=== PATIENT | female | born 1970 | race Caucasian/White ===

== ENCOUNTER 2018-12-27 10:49 | Emergency (ER) | payer OTHER ==
[~2018-12-27] VITALS: Ht 157.5 cm; Wt 79.8 kg
[2018-12-27 10:51] VITALS: Ht 157.5 cm; Wt 79.8 kg
[2018-12-27] MEDS ORDERED: DIPHENHYDRAMINE 50 MG INJ IV STA (11:16)
[2018-12-27] MEDS ORDERED: PROCHLORPERAZINE 10 MG INJ IV STA (11:16)
[2018-12-27] MEDS ORDERED: SOD CHLORIDE 0.9% 1,000 ML IV STA (11:16)
[2018-12-27] MEDS ORDERED: ACETAMINOPHEN 500 MG TAB PO STA (11:16)
[2018-12-27] MEDS ORDERED: KETOROLAC 15 MG INJ IV STA (13:28)
--- NOTE | 2018-12-27 13:33 | ERD ---
ER Documentation Chief Complaint Chief Complaint headache x 3 days getting worse HPI This is a 48-year-old female with no significant past medical history who is presenting for a headache. The patient endorses 3 to 4 days of progressive worsening pulsating or throbbing aching moderate frontal headache with phonophobia but no photophobia and no nausea. The patient reports that at first she felt a little lightheaded with a dull aching sensation to the head, but it is recurrent progressed to become more significant. She is attempted Tylenol at home without relief. She has had headaches in the past, but typically they go away with Tylenol. The patient does not endorse any stress or anxiousness. She does not endorse any tension to her neck. She does not endorse any neck stiffness or pain. She is able to move her neck in all directions without issue. She does not have a personal or family history of cerebral aneurysm. The patient actually does also endorse dysuria with urgency and frequency. She does not have any hematuria. The patient denies feeling sick recently. The patient denies fever or chills. The patient has had no headache or vision changes. The patient does not endorse neck or back pain. The patient denies lightheadedness or dizziness. The patient has had no chest pain or trouble breathing. The patient denies nausea or vomiting. The patient denies abdominal pain. The patient denies changes to bowel movements. The patient has had no focal deficits. The patient has had no weakness or numbness or tingling to the face or extremities. ROS All systems reviewed and are negative except as per history of present illness. Medications Home Meds No Active Prescriptions or Reported Meds Allergies Allergies: Coded Allergies: No Known Allergy (Unverified , 12/27/18) PMhx/Soc Medical and Surgical Hx: pt denies Medical Hx History of Surgery: Yes (hysterectomy) Anesthesia Reaction: No Hx Alcohol Use: Yes (jona [id number]) Hx Substance Use: No Hx Tobacco Use: No Smoking Status: Unknown if ever smoked FmHx Family History: No diabetes Physical Exam Vitals Vital Signs Date Temp Pulse Resp B/P (MAP) Pulse Ox O2 O2 Flow FiO2 Time Delivery Rate 12/27/18 37.2 11:43 12/27/18 99.0 109 26 112/72 100 Room Air 11:28 (85) 12/27/18 99.0 101 26 114/56 98 10:51 (75) Physical Exam Const: No apparent distress, well-developed, well-nourished Head: Normocephalic, Atraumatic Eyes: Normal Conjunctiva. Extraocular movements intact. Pupils equal, round and reactive to light ENT: Normal External Ears, Nose and Mouth. Neck: Full range of motion. No meningismus. Resp: Clear to auscultation bilaterally, No wheezes, rales or rhonchi Cardio: Regular rate and rhythm. No murmurs, rubs or gallops Abd: Soft, non tender, non distended. Normal bowel sounds Skin: No petechiae or rashes Back: No midline tenderness. No CVA tenderness Ext: No cyanosis, or edema Neur: Awake and alert, oriented 4. Cranial nerves intact. No facial droop. Normal strength, sensation and coordination. Psych: Normal Mood and Affect Result Diagram: 12/27/18 1145 12/27/18 1145 Results 24 hrs Laboratory Tests Test 12/27/18 11:45 12/27/18 12:01 White Blood Count 11.3 10^3/ul Red Blood Count 4.09 10^6/ul Hemoglobin 12.7 g/dl Hematocrit 37.5 % Mean Corpuscular Volume 91.7 fl Mean Corpuscular Hemoglobin 31.1 pg Mean Corpuscular Hemoglobin Concent 33.9 g/dl Red Cell Distribution Width 12.3 % Platelet Count 284 10^3/UL Mean Platelet Volume 9.5 fl Immature Granulocytes % 0.600 % Neutrophils % 83.7 % Lymphocytes % 9.2 % Monocytes % 5.7 % Eosinophils % 0.3 % Basophils % 0.5 % Nucleated Red Blood Cells % 0.0 /100WBC Immature Granulocytes # 0.070 10^3/ul Neutrophils # 9.4 10^3/ul Lymphocytes # 1.0 10^3/ul Monocytes # 0.6 10^3/ul Eosinophils # 0.0 10^3/ul Basophils # 0.1 10^3/ul Nucleated Red Blood Cells # 0.0 10^3/ul Prothrombin Time 13.1 Sec Prothrombin Time Ratio 1.0 INR International Normalized Ratio 0.98 Urine Color GEOFFREY Urine Clarity CLOUDY Urine pH 5.0 Urine Specific Mcclellan 1.025 Urine Ketones NEGATIVE mg/dL Urine Nitrite NEGATIVE mg/dL Urine Bilirubin NEGATIVE mg/dL Urine Urobilinogen NEGATIVE mg/dL Urine Leukocyte Esterase 1+ Zachary/ul Urine Microscopic RBC 18 /HPF Urine Microscopic WBC 87 /HPF Urine Squamous Epithelial Cells FEW /HPF Urine Bacteria FEW /HPF Urine Mucus MODERATE /HPF Urine Hemoglobin 3+ mg/dL Urine Glucose NEGATIVE mg/dL Urine Total Protein 1+ mg/dl Sodium Level 140 mmol/L Potassium Level 3.5 mmol/L Chloride Level 105 mmol/L Carbon Dioxide Level 28 mmol/L Anion Gap 7 Blood Urea Nitrogen 9 mg/dl Creatinine 0.80 mg/dl Est Glomerular Filtrat Rate mL/min > 60 mL/min Glucose Level 104 mg/dl Calcium Level 9.4 mg/dl POC Beta HCG, Qualitative NEGATIVE Current Medications Medications Dose Sig/Leopoldo Start Time Status Last (Trade) Ordered Route PRN Stop Time Admin Dose Reason Admin Sodium 1,000 ml @ Q1H STAT 12/27/18 DC 12/27/18 Chloride 1,000 mls/hr IV 11:16 11:47 12/27/18 12:15 1,000 mg ONCE STAT 12/27/18 DC 12/27/18 Acetaminophen PO 11:16 11:43 (Tylenol 12/27/18 11:18 Tab) 10 mg ONCE STAT 12/27/18 DC 12/27/18 Prochlorperaz IV 11:16 11:43 ine 12/27/18 11:18 (Compazine Inj) 25 mg ONCE STAT 12/27/18 DC 12/27/18 Diphenhydrami IV 11:16 11:43 ne HCl 12/27/18 11:18 (Benadryl) Procedures/MDM MDM The patient's presentation warrants further investigation. Previous medical records, if available, were reviewed. LABS The patient's laboratory testing was obtained and reviewed. No emergent treatment was required unless described below. CBC: Mild leukocytosis, likely reactive, low clinical suspicion for a systemic infection. No E/o anemia or thrombocytopenia Chemistry: No E/o severe acidosis or alkalosis or renal failure or diabetic ketoacidosis PT/INR: No E/o significant coagulopathy Urine: E/o acute infection with hematuria IMAGING Imaging and Radiology interpretation reviewed. CT head FINDINGS: There is no evidence of acute intracranial hemorrhage or acute territorial infarct. No mass or mass effect is seen on this noncontrast study. The ventricles and cisterns are normal in size and configuration. The haque- white matter differentiation is within normal limits. The visualized paranasal sinuses are normally aerated. The bony calvarium is unremarkable IMPRESSION: Unremarkable unenhanced CT of the brain Electronically viewed and signed by Archie Anne MD, MD on 12/27/2018 12:59 TREATMENT/DISPOSITION The patient presents with a headache. The patient does have a urinary tract infection, which could relate to her headache today. The patient will require outpatient treatment. Differential diagnosis includes migraine, tension headache, cluster headache. The patient has no focal deficits. The neurologic exam is reassuring. I have decreased suspicion for cerebral ischemia. There was no trauma or injury. There is no personal or family history of cerebral aneurysm. This is not the worst headache of the patient's life. It was not acutely severe. It is been progressive in nature. I have decreased suspicion for SAH or other ICH. I have low suspicion for temporal arteritis, cavernous venous thrombosis, subdural hematoma, epidural hematoma, meningitis. The patient was treated with IV fluids, Tylenol, Toradol, Compazine and Benadryl with improvement of her symptoms. DISCHARGE Upon reevaluation of the patient, symptoms have improved. No emergent diagnoses were identified. At this time, I feel that the patient stable for discharge. The patient was instructed to follow-up with a primary care physician in 1-3 days. The patient will be given strict precautions with which to return to the emergency department. Prescriptions: Keflex, ibuprofen Disclaimer: Inadvertent spelling and grammatical errors are likely due to EHR/dictation software use and do not reflect on the overall quality of patient care. Note that the electronic time recorded on this note does not necessarily reflect the actual time of the patient encounter. Departure Diagnosis: Primary Impression: Headache Headache type: unspecified Headache chronicity pattern: acute headache Intractability: not intractable Qualified Codes: R51 - Headache Additional Impressions: Urinary tract infection Urinary tract infection type: acute cystitis Hematuria presence: with hematuria Qualified Codes: N30.01 - Acute cystitis with hematuria Leukocytosis Leukocytosis type: unspecified Qualified Codes: D72.829 - Elevated white blood cell count, unspecified Condition: Stable Patient Instructions: Self-Care for Headaches, When Your Child Has a Urinary Tract Infection (UTI) Additional Instructions: Thank you for for coming to [facility] for your care today. Please ask your nurse or provider if you have questions about your care today and do not leave until all your questions have been answered. Please use any medications given as directed and follow-up with your doctor (or the doctor you were referred to) in the next 1-3 days. If you do not have a primary care doctor you may follow up at the [facility] or [facility] (listed below). You may also use motrin and tylenol as needed for fever and/or pain unless instructed otherwise by your provider or nurse. Indications for more urgent follow-up have been discussed, but you may return to the Emergency Department at ANY time for any worrisome or worsening symptoms. If you have abdominal pain, please know that no test or exam you received is perfect and you should follow up within 8 hours for continued pain. If you had any imaging studies today, such as an X-Ray or CT Scan, these studies will be reviewed later by a radiologist. You will be called if there are important findings that were not identified today, so make sure the contact information you provided at registration is correct. If you received any narcotic pain control medicine today, such as Vicodin, Morphine or Dilaudid, your coordination and judgment may be affected for a number of hours. Please do not drive or operate heavy machinery, and you may want someone to assist you at home. If you were given a prescription for narcotic medication, be aware that it is very addictive- use sparingly and only if necessary. PLEASE SEEK FURTHER EVALUATION AND MANAGEMENT AT YOUR DOCTORS OFFICE WITHIN THE NEXT 1-3 DAYS. IT IS YOUR RESPONSIBILITY TO MAKE AN APPOINTMENT FOR FOLOW-UP CARE. IF YOU HAVE A PRIMARY DOCTOR, PLEASE CALL THEIR OFFICE TO SCHEDULE AN APPOINTMENT FOR FOLLOW UP. IF YOU DO NOT HAVE A PRIMARY DOCTOR YOU CAN CALL OUR PHYSICIAN REFERRAL HOTLINE AT IF YOU CAN NOT AFFORD TO SEE A PHYSICIAN YOU CAN CHOSE FROM THE FOLLOWING [facility] CLINICS: [facility] [id number] [facility] [address] [facility] [address] [facility] [address] [facility] [address] [facility]. [facility]. [address] MELONIE FLORES MD Dec 27, 2018 13:33
[2018-12-27] MEDS ORDERED: CEPH-443 PO (13:34)
[2018-12-27] MEDS ORDERED: IBUP-1542 PO (13:34)
[2018-12-27 13:53] VITALS: BP 106/63; PULSE 100; RESP 18
== END 2018-12-27 13:59 | disposition home or self-care (01) ==
LOC: FTE 10:49 → E/R 13:59
DX: N30.01 Acute cystitis with hematuria (principal); D72.829 Elevated white blood cell count, unspecified
CPT/HCPCS: 36415; 70450; 80048; 81001; 81025; 85025; 85610; 96361; 96374; 96375; J0780; J1200; J1885; J7030; Z7502; Z7610